=== PATIENT | male | born 1960 | race Caucasian/White ===

== ENCOUNTER → 2018-07-21 | Outpatient (CLI) | payer MEDICARE, BC ==
[~2018-07-21] MED LIST: ASPI-482 PO; ESCITALOPRAM OX20 MG PO; INSU100C SQ; LEVO200T PO; LEVO25TA55 PO; LOSA25TA5 PO; PANT40TA5 PO; SIMV40TA3 PO
--- NOTE | 2018-07-21 15:06 | KCIC ---
MRI of the lumbar spine without contrast 07/21/2018 CLINICAL HISTORY: Low back pain which radiates down the left leg. TECHNIQUE: Unenhanced T1-weighted and T2-weighted sagittal and axial and inversion recovery sagittal images of the lumbar spine were obtained. FINDINGS: Minimal S-shaped curvature of the thoracolumbar spine is seen. Degenerative signal changes are seen involving the L2-3, L4-5 and L5-S1 discs. Degenerative signal changes are seen within the marrow surrounding these discs. Loss of height of the L4-5 and L5-S1 discs is noted. The conus medullaris is normal morphology, position, and signal characteristics. The L1-2 disc space is within normal limits. At the L2-3 disc space there is a mild generalized disc bulge. Degenerative changes are seen involving the facet joints bilaterally. There is mild ligament flavum hypertrophy bilaterally. These findings when combined do not result in significant central spinal canal or neural foraminal stenosis. At the L3-4 disc space there is a mild generalized disc bulge. Degenerative changes are seen involving the facet joints bilaterally. There is mild ligamentum flavum hypertrophy bilaterally. There is prominence of the posterior epidural fat. These findings when combined with prominence of the posterior epidural fat result in mild central spinal canal stenosis. No neural foraminal stenosis is seen. At the L4-5 disc space there is a mild generalized disc bulge. Superimposed on this disc bulge is a right paracentral focal disc protrusion. This measures 3 mm in AP diameter. Degenerative changes are seen involving the facet joints bilaterally. There is mild ligament flavum hypertrophy bilaterally. There is prominence of the posterior epidural fat. These findings when combined result in mild right greater than left central spinal canal stenosis. No neural foraminal stenosis is seen. At the L5-S1 disc space there is a mild to moderate generalized disc bulge. Superimposed on this disc bulge is a central/right paracentral focal disc protrusion. This measures 4 mm in AP diameter. Degenerative changes are seen involving the facet joints bilaterally. There is mild ligamentum flavum hypertrophy. These findings when combined do not result in significant central spinal canal or neural foraminal stenosis. IMPRESSION: The changes of degenerative disc disease are seen throughout the lumbar spine. These findings result in mild central spinal canal stenosis at L3-4 and mild right greater than left central spinal canal stenosis at L4-5. No neural foraminal stenosis is seen. Electronically signed by: Clay Cannon MD (07/21/2018 3:03 PM) [facility]
== END | disposition home or self-care (01) ==
LOC: KCIC MRI 11:40
PROVIDERS: ATTEND Anesthesiology Pain Medicine
DX: M51.36 Other intervertebral disc degeneration, lumbar region (principal); M48.061 Spinal stenosis, lumbar region without neurogenic claudication; M51.26 Other intervertebral disc displacement, lumbar region
CPT/HCPCS: 72148

== ENCOUNTER → 2019-09-10 | Outpatient (CLI) | payer MEDICARE, BC ==
[~2019-09-10] MED LIST changes: -LOSA25TA5 PO; +LOSA25TA54 PO; -PANT40TA5 PO; +PANT40TA77 PO; +SIMV40TA18 PO; -SIMV40TA3 PO
--- NOTE | 2019-09-10 16:57 | RAD ---
DUPLEX LOWER EXTREMITY BILAT Indication: Delayed healing of left toe. Comparison: July 29, 2016. Procedure: Real-time grayscale, color flow Doppler, and Doppler spectral waveform analysis of the arterial system of the lower extremity is performed. Findings: Right lower extremity: Biphasic or triphasic waveforms throughout the right common femoral, deep femoral, superficial femoral, popliteal, anterior tibial and posterior tibial artery. No flow is identified within the right peroneal artery. Monophasic waveform within the dorsalis pedis artery, may indicate proximal stenosis. Increased velocity within the left common femoral artery measures 189 cm/s and anterior tibial artery measures 156 cm/s indicating 30-49% stenosis. Increased velocity in the left dorsalis pedis artery measures 250 cm/s indicating 50-75% stenosis. Monophasic waveform throughout the distal left lower extremity from the superficial femoral artery distally through the dorsalis pedis artery. Postoperative changes right femoral popliteal artery bypass graft with minimal flow seen proximally and occlusion within the mid aspect, similar compared to prior study. IMPRESSION: 1. No flow is identified within the right peroneal artery, may indicate occlusion. 2. 50-75% stenosis of the left dorsalis pedis artery. 3. 30-49% stenosis of the left common femoral and anterior tibial arteries. 4. Occlusion of the right femoral popliteal artery bypass graft, unchanged. 5. Monophasic waveforms throughout the mid to distal left lower extremity, may indicate proximal stenosis. Electronically signed by: Ross Gutiérrez DO (09/10/2019 4:54 PM) [id number]
== END | disposition home or self-care (01) ==
LOC: US 15:19
PROVIDERS: ATTEND Podiatrist Foot & Ankle Surgery
DX: I70.293 Other atherosclerosis of native arteries of extremities, bilateral legs (principal)
CPT/HCPCS: 93925

== ENCOUNTER → 2020-10-29 | Outpatient (CLI) | payer MEDICARE, BC ==
[~2020-10-29] MED LIST changes: +ALPR0.5T6 PO; +BUPR300T92 PO; +CETI10TA16 PO; +CYCL10TA2 PO; +ERGO500027 PO; +FLUT9.9S NS; +FURO40TA4 PO; +INSU100V6 SQ; +ISOS30TA68 PO; +MECL12.582 PO; +MULT-496 PO; +MUPI15CR8 TP; +OMEP40CA45 PO; +RANO500T2 PO; +SUCR1TAB35 PO; +VENTOLIN HFA18 GM INH; +ZOLP10TA PO; +ranitidine PO
== END ==
LOC: LAB 09:20
PROVIDERS: ATTEND Internal Medicine Cardiovascular Disease
DX: Z01.812 Encounter for preprocedural laboratory examination (principal); R07.9 Chest pain, unspecified; Z20.822 Contact with and (suspected) exposure to COVID-19
CPT/HCPCS: U0003

== ENCOUNTER 2020-11-03 07:18 | Outpatient (CLI) | payer MEDICARE, BC ==
[~2020-11-03] VITALS: Ht 185.4 cm; Wt 127.9 kg
[2020-11-03] VITALS (10 sets, daily range): BP systolic 130–188; BP diastolic 63–101
[~2020-11-03 07:18] MED LIST changes: -ALPR0.5T6 PO; -BUPR300T92 PO; -CETI10TA16 PO; -CYCL10TA2 PO; -ERGO500027 PO; -FLUT9.9S NS; -FURO40TA4 PO; -INSU100V6 SQ; -ISOS30TA68 PO; -MECL12.582 PO; -MULT-496 PO; -MUPI15CR8 TP; -OMEP40CA45 PO; -RANO500T2 PO; -SUCR1TAB35 PO; -VENTOLIN HFA18 GM INH; -ZOLP10TA PO; -ranitidine PO
[2020-11-03 07:48] LABS: HEMATOCRIT 41.4 % (39.0-53.0); HEMOGLOBIN 14.4 g/dL (13.0-17.5); RED BLOOD COUNT 4.77 x10^6/uL (4.30-5.70); RED CELL DISTRIBUTION WIDTH 13.7 % (11.5-14.5); WHITE BLOOD COUNT 4.8 x10^3/uL (4.0-11.0)
[2020-11-03] MEDS ORDERED: LIDOCAINE 1% PF 2 ML VIAL. ONE (07:48)
[2020-11-03] MEDS ORDERED: IODIXANOL 320 MG/ML 100 ML VIAL. ONE (07:48)
[2020-11-03] MEDS ORDERED: HEPARIN for ARTERIAL LINE 1,500 ML ONE (07:49)
[2020-11-03] MEDS ORDERED: LIDOCAINE 1% Multi-Dose 20 ML VIAL. ONE (07:51)
[2020-11-03 07:55] LABS: CALCIUM 8.9 mg/dL (8.5-10.1); CREATININE 1.2 mg/dL (0.7-1.3); GFR 61.3; POTASSIUM 4.1 mmol/L (3.5-5.1)
[2020-11-03 07:58] LABS: PROTHROMBIN TIME PATIENT 12.9 SEC (11.7-14.0)
[2020-11-03] MEDS ORDERED: LIDOCAINE 1% Multi-Dose 20 ML VIAL. INJ ONE (08:00)
[2020-11-03] MEDS ORDERED: fentaNYL PF VIAL 100 MCG/2 ML VIAL IV ONE (08:00)
[2020-11-03] MEDS ORDERED: IODIXANOL 320 MG/ML 100 ML VIAL. IART ONE (08:00)
[2020-11-03] MEDS ORDERED: HEPARIN for IV BOLUS 10,000 UNIT/10 ML VIAL. IART ONE (08:00)
[2020-11-03] MEDS ORDERED: VERAPAMIL 5 MG/2 ML VIAL. IART ONE (08:00)
[2020-11-03] MEDS ORDERED: NITROGLYCERIN 200 MCG/2 ML SYRINGE FOR CATH/VASC LAB. IART ONE (08:00)
[2020-11-03] MEDS ORDERED: MIDAZOLAM HCL/PF 2 MG/2 ML VIAL. IV ONE (08:00)
[2020-11-03] MEDS ORDERED: fentaNYL PF VIAL 100 MCG/2 ML VIAL ONE (08:06)
[2020-11-03] MEDS ORDERED: VERAPAMIL 5 MG/2 ML VIAL. ONE (08:06)
[2020-11-03] MEDS ORDERED: MIDAZOLAM HCL/PF 2 MG/2 ML VIAL. ONE (08:06)
[2020-11-03] MEDS ORDERED: HEPARIN for IV BOLUS 10,000 UNIT/10 ML VIAL. ONE (08:06)
[2020-11-03] MEDS ORDERED: NITROGLYCERIN 200 MCG/2 ML SYRINGE FOR CATH/VASC LAB. ONE ×2 (08:07→12:16)
[2020-11-03] MEDS ORDERED: FURO40TA4 PO (09:05)
[2020-11-03] MEDS ORDERED: BUPR300T92 PO (09:05)
[2020-11-03] MEDS ORDERED: FLUT9.9S NS (09:05)
[2020-11-03] MEDS ORDERED: MECL12.574 PO (09:05)
[2020-11-03] MEDS ORDERED: MUPI15CR8 TP (09:05)
[2020-11-03] MEDS ORDERED: OMEP40CA45 PO (09:05)
[2020-11-03] MEDS ORDERED: CETI10TA16 PO (09:05)
[2020-11-03] MEDS ORDERED: MULT-496 PO (09:05)
[2020-11-03] MEDS ORDERED: INSU100V6 SQ (09:05)
[2020-11-03] MEDS ORDERED: VENTOLIN HFA18 GM INH (09:05)
[2020-11-03] MEDS ORDERED: ALPR0.5T6 PO (09:05)
[2020-11-03] MEDS ORDERED: ERGO500027 PO (09:05)
[2020-11-03] MEDS ORDERED: CYCL10TA2 PO (09:05)
[2020-11-03] MEDS ORDERED: SUCR1TAB35 PO (09:05)
[2020-11-03] MEDS ORDERED: ranitidine PO (09:05)
[2020-11-03] MEDS ORDERED: ZOLP10TA PO (09:05)
[2020-11-03] MEDS ORDERED: HEPARIN for IV BOLUS 10,000 UNIT/10 ML VIAL. IV ONE (12:15)
--- NOTE | 2020-11-03 13:06 | CARD ---
MR#: [id number] Date of Study: 11/03/2020 Ordering Physician: PALOMA DONAHUE, Referring Physician: PALOMA DONAHUE, Tech: SONAL TORRES RTR APPROVED REPORT Technologist: SONAL TORRES RTR Nurse: Poornima Baker RN Procedure(s) performed: MODERATE SEDATION TIME: 50 MINUTES FLUORO TIME: 19.3 MIN DOSE: [id number] CONTRAST: 149 CC VISI LHC, Coronary angiography iFR of the LAD and LCx HISTORY The patient is a 60 year-old with a history of : diabetes mellitus with treatment, hypertension, dysl ipidemia. INDICATION The indication(s) include : unstable angina , dyspnea. [facility] Clinical Frailty Scale [facility] Clinical Frailty Scale: Mildly Frail Heart Failure Heart Failure: Yes If Yes, Newly Diagnosed: Yes If Yes, HF Type: Diastolic If Yes, NYHA Class: Class II PROCEDURE NARRATIVE Clinical information: 60-year-old man who presented to the office in the setting of exertional dyspnea and chest discomfort . Given his high pretest probability with risk factors including diabetes, hypertension and male gen christine a decision was made to proceed with cardiac catheterization. Procedure details: The right wrist was prepped and draped in usual sterile fashion. Under 2% lidocaine local anesthesia a 6 Venezuelan sheath was placed in the right radial artery via the Seldinger technique. Next, a 6 Fren ch TIG catheter was used to perform diagnostic angiography of the right and left coronary arteries. A pigtail catheter was used to obtain a left ventricular end-diastolic pressure and a pullback was pe rformed. Findings: Aorta 180/80 LVEDP 15 mmHg No pullback gradient across aortic valve Coronary angiography: Left main is a moderate caliber vessel with mild luminal irregularities and negative remodeling LAD is a small to moderate caliber vessel with moderate diffuse irregularities in the proximal to mid segment of up to 50%. D1 is a moderate caliber vessel with a distal 70% stenosis Left circumflex is a nondominant vessel with an ostial 60% stenosis. OM1 is a small caliber vessel with a proximal 50% stenosis RCA is a large caliber dominant vessel with mid 40 to 50% stenosis. RPDA is a small caliber vessel with mild diffuse irregularities of up to 30% Interventional technique: Given the intermediate stenosis involving the LAD and circumflex disease a decision was made to perfo rm an IFR. Heparin was used for anticoagulation. Intracoronary nitroglycerin was administered. Thr ough a 6 Venezuelan EBU 3.5 guide catheter a [employer] IFR wire was advanced to the LAD and also redirected into the left circumflex after appropriate normalization and this revealed a positive IFR of the LAD at 0.8 and a IFR of the left circumflex of 0.95. These values were confirmed and the guide catheter was also pulled back into the aorta to reduce any dampening and despite this the LAD IFR value was e levated. Due to diffuse disease and lack of any clear focal stenosis involving the LAD further inter vention was deferred. At case completion the right radial sheath was removed and hemostasis achieved with a Blockboardumo radial b and. No acute complications noted. The patient tolerated the procedure well. Conclusion 1. Normal left-sided filling pressures 2. Moderate diffuse three-vessel coronary artery disease with positive IFR of the LAD and negative I FR of the left circumflex. Recommendations Aggressive medical therapy with trial of antianginals including Imdur and Ranexa. If he fails medica l therapy could consider KRAUSE to the LAD versus high risk PCI but at this time would favor medical th erapy. Signed by : Paloma Donahue, Electronically Approved : 11/03/2020 13:05:48
--- NOTE | 2020-11-03 14:33 | RAD ---
MR#: [id number] Date of Study: 11/03/2020 Ordering Physician: PALOMA ELLIS, Referring Physician: PALOMA ELLIS, Tech: Erickson Cross, WINDY, RDMS, RVT, RDCS, RTR APPROVED REPORT Patient Location: OUT-PATIENT Indications PAD VELOCITY AND DOPPLER WAVEFORM ANALYSIS RIGHT cm/secWaveformSeverity LEFT cm/secWaveform Severity dCFA 129.0BiphasicdCFA 134.0Biphasic Prof Fem Art. 71.0BiphasicProf Fem Art. 93.0Biphasic Fem Art Prox. 117.0BiphasicFem Art Prox. 130.0Biphasic Fem Art Mid. 121.0BiphasicFem Art Mid. 129.0Biphasic Fem Art Dist. 126.0BiphasicFem Art Dist. 114.0Biphasic Pop Art(Fossa) 91.0BiphasicPop Art(AK) 102.0Biphasic HOSPICE SPIRITUAL CARE COORDINATOR Prox. 65.0BiphasicPTA Prox. 49.0Biphasic HOSPICE SPIRITUAL CARE COORDINATOR Dist. 76.0BiphasicPTA Dist. 94.0Triphasic JÚNIOR Prox. 70.0BiphasicATA Prox. 92.0Biphasic DPA 119BiphasicDPA 107Triphasic BYPASS GRAFT ANALYSIS RIGHT cm/secWaveform SeverityLEFT cm/secWaveformSeverity Prox. Anastomosis Prox. Anastomosis Findings Luz scale images of the bilateral lower extremity arterial vessels demonstrate mild to moderate diff use atherosclerosis. Spectral waveforms and color Doppler are grossly within normal limits. There is two-vessel runoff be low the knee. Otherwise no critical stenosis identified. Critical Notification Critical Value: No <Conclusion> 1. No significant lower extremity arterial disease bilaterally Signed by : Paloma Ellis, Electronically Approved : 11/03/2020 14:33:08
[2020-11-03] MEDS ORDERED: ISOS30TA68 PO (14:43)
[2020-11-03] MEDS ORDERED: RANO500T2 PO (14:43)
--- NOTE | 2020-11-03 15:10 | NUR ---
TR band dc'd. Arm board reapplied. PIV remains intact for echocardiogram. Pt ambulated and tolerated PO. Pt transferred to cardiac center for echo
--- NOTE | 2020-11-04 08:41 | CARD ---
MR#: [id number] Date of Study: 11/03/2020 Ordering Physician: PALOMA ELLIS, Referring Physician: PALOMA ELLIS, Tech: Liliana Mclean, [facility] APPROVED REPORT EXAM: Two-dimensional and M-mode echocardiogram with Doppler and color Doppler. Other Information Quality : AverageHR: 62bpm INDICATION Dyspnea RISK FACTORS Hypertension Hyperlipidemia Diabetes Asthma 2D DIMENSIONS RVDd3.6 (2.9-3.5cm)Left Atrium(2D)3.4 (1.6-4.0cm) IVSd1.1 (0.7-1.1cm)Aortic Root(2D)3.4 (2.0-3.7cm) LVDd5.1 (3.9-5.9cm)LVOT Diameter2.2 (1.8-2.4cm) PWd1.0 (0.7-1.1cm)LVDs3.4 (2.5-4.0cm) FS (%) 33.2 %SV77.0 ml LVEF(%)61.4 (>50%) Aortic Valve AoV Peak Perry.132.0cm/sAoV VTI26.5cm AO Peak GR.7.0mmHgLVOT Peak Perry.107.3cm/s LVOT VTI 24.56cmAO Mean GR.3mmHg DANIEL (VMAX)2.67yv1LSO (VTI)3.37cm2 Mitral Valve MV E Kedwvvum49.1cm/sMV DECEL QCUM260if MV A Lnhmrqyn367.9cm/sMV PUI41ql E/A Ratio0.8MVA (PHT)3.10cm2 TDI E/Lateral E'10.1E/Medial E'12.7 Pulmonary Valve PV Peak Aazlljtm52.6cm/sPV Peak Grad.4mmHg Pulmonary Vein S1 Viemkecv38.1cm/sD2 Kgqfxncy55.8cm/s PVa llczuxbv125vhac LEFT VENTRICLE The left ventricle is normal size. There is normal left ventricular wall thickness. The left ventricu lar systolic function is normal. The Ejection Fraction is 55-60%. There is normal LV segmental wall m otion. Transmitral Doppler flow pattern is Grade I-abnormal relaxation pattern. RIGHT VENTRICLE The right ventricle is normal size. There is normal right ventricular wall thickness. The right ventr icular systolic function is normal. ATRIA The left atrium size is normal. The right atrium size is normal. The interatrial septum is intact wit h no evidence for an atrial septal defect or patent foramen ovale as noted on 2-D or Doppler imaging. AORTIC VALVE The aortic valve is normal in structure and function. Doppler and Color Flow revealed no significant aortic regurgitation. Calculated aortic valve area is 3.03 cm2 with maximum pressure gradient of 9 mm Hg and mean pressure gradient of 4 mmHg. MITRAL VALVE The mitral valve is normal in structure and function. There is no evidence of mitral valve prolapse. There is no mitral valve stenosis. Doppler and Color Flow revealed no mitral valve regurgitation note d. TRICUSPID VALVE The tricuspid valve is normal in structure and function. Doppler and Color Flow revealed no tricuspid valve regurgitation noted. There is no tricuspid valve stenosis. PULMONIC VALVE The pulmonic valve is not well visualized. Doppler and Color Flow revealed trace pulmonic valvular re gurgitation. GREAT VESSELS The aortic root is normal in size. The IVC is normal in size and collapses >50% with inspiration. PERICARDIAL EFFUSION There is no evidence of significant pericardial effusion. Critical Notification Critical Value: No <Conclusion> The left ventricular systolic function is normal. The Ejection Fraction is 55-60%. There is normal LV segmental wall motion. Transmitral Doppler flow pattern is Grade I-abnormal relaxation pattern. There is no evidence of significant pericardial effusion. Signed by : Sridhar Bansal, Electronically Approved : 11/04/2020 08:40:59
== END 2020-11-03 15:34 | disposition home or self-care (01) ==
LOC: CCL 07:18
PROVIDERS: ATTEND Internal Medicine Cardiovascular Disease
DX: I25.110 Atherosclerotic heart disease of native coronary artery with unstable angina pectoris (principal); I73.9 Peripheral vascular disease, unspecified; I10 Essential (primary) hypertension; E11.9 Type 2 diabetes mellitus without complications; E78.5 Hyperlipidemia, unspecified; J45.909 Unspecified asthma, uncomplicated; K21.9 Gastro-esophageal reflux disease without esophagitis; M19.90 Unspecified osteoarthritis, unspecified site; E03.9 Hypothyroidism, unspecified; Z90.49 Acquired absence of other specified parts of digestive tract; Z98.890 Other specified postprocedural states; Z79.899 Other long term (current) drug therapy; Z79.82 Long term (current) use of aspirin; Z79.4 Long term (current) use of insulin; Z87.891 Personal history of nicotine dependence; Z88.8 Allergy status to other drugs, medicaments and biological substances
CPT/HCPCS: 36415; 80048; 85027; 85610; 93306; 93458; 93571; 93572; 93925; 99152; 99153; C1769; C1892; J1644; J2250; J3010; J3490; Q9967

== ENCOUNTER 2022-02-01 08:33 | Outpatient (CLI) | payer MEDICARE, BC ==
[~2022-02-01] VITALS: Ht 185.4 cm; Wt 121.8 kg
[2022-02-01] VITALS (12 sets, daily range): BP systolic 124–176; BP diastolic 56–88
[~2022-02-01 08:33] MED LIST changes: +ALPR0.5T6 PO; +BUPR300T92 PO; +CETI10TA16 PO; +CYCL10TA19 PO; +ERGO500089 PO; +FLUT9.9S NS; +FURO40TA4 PO; +HEPARIN for ARTERIAL LINE 1,500 ML ONE; +INSU100V6 SQ; +IODIXANOL 320 MG/ML 100 ML VIAL. ONE; +ISOS30TA68 PO; +LIDOCAINE 1% PF 2 ML VIAL. ONE; +MECL12.582 PO; +MULT-496 PO; +MUPI15CR8 TP; +OMEP40CA7 PO; +RANO500T2 PO; +SUCR1TAB35 PO; +VENTOLIN HFA18 GM INH; +ZOLP10TA PO; +ranitidine PO
[2022-02-01 09:36] LABS: CALCIUM 8.7 mg/dL (8.5-10.1); CREATININE 1.3 mg/dL (0.7-1.3); GFR 55.8
[2022-02-01] MEDS ORDERED: CRESTOR40 MG PO (09:40)
[2022-02-01] MEDS ORDERED: [UNRECOGNIZED DRUG - OTHER] (09:40)
[2022-02-01] MEDS ORDERED: LEVO150C PO (09:40)
[2022-02-01] MEDS ORDERED: CIME200T6 PO (09:40)
[2022-02-01] MEDS ORDERED: MELA10CA PO (09:40)
[2022-02-01] MEDS ORDERED: MIDAZOLAM HCL/PF 2 MG/2 ML VIAL. ONE (09:50)
[2022-02-01] MEDS ORDERED: VERAPAMIL 5 MG/2 ML VIAL. ONE (09:50)
[2022-02-01] MEDS ORDERED: fentaNYL PF VIAL 100 MCG/2 ML VIAL ONE (09:50)
[2022-02-01] MEDS ORDERED: HEPARIN for IV BOLUS 10,000 UNIT/10 ML VIAL. ONE (09:50)
[2022-02-01] MEDS ORDERED: NITROGLYCERIN 200 MCG/2 ML SYRINGE FOR CATH/VASC LAB. ONE (09:50)
[2022-02-01 09:57] LABS: HEMATOCRIT 37.3 % (39.0-53.0); HEMOGLOBIN 13.4 g/dL (13.0-17.5); RED BLOOD COUNT 4.28 x10^6/uL (4.30-5.70); RED CELL DISTRIBUTION WIDTH 13.2 % (11.5-14.5); WHITE BLOOD COUNT 4.4 x10^3/uL (4.0-11.0)
[2022-02-01 09:59] LABS: PROTHROMBIN TIME PATIENT 13.4 SEC (11.7-14.0)
[2022-02-01] MEDS ORDERED: TIROFIBAN 12.5MG -0.9% NS 0 ML IV ONE (10:18)
[2022-02-01] MEDS ORDERED: MIDAZOLAM HCL/PF 2 MG/2 ML VIAL. IV ONE (10:45)
[2022-02-01] MEDS ORDERED: NITROGLYCERIN 200 MCG/2 ML SYRINGE FOR CATH/VASC LAB. IART ONE (10:45)
[2022-02-01] MEDS ORDERED: HEPARIN for IV BOLUS 10,000 UNIT/10 ML VIAL. IART ONE (10:45)
[2022-02-01] MEDS ORDERED: LIDOCAINE 1% PF 2 ML VIAL. INJ ONE (10:45)
[2022-02-01] MEDS ORDERED: fentaNYL PF VIAL 100 MCG/2 ML VIAL IV ONE (10:45)
[2022-02-01] MEDS ORDERED: IODIXANOL 320 MG/ML 100 ML VIAL. IART ONE (10:45)
[2022-02-01] MEDS ORDERED: VERAPAMIL 5 MG/2 ML VIAL. IART ONE (10:45)
--- NOTE | 2022-02-01 12:42 | CARD ---
MR#: [id number] Date of Study: 02/01/2022 Ordering Physician: PALOMA DONAHUE, Referring Physician: PALOMA DONAHUE, Tech: RT Malcom(R) APPROVED REPORT Technologist: Danyelle Stewart RT(R) Nurse: Kevin Armstrong RN Procedure(s) performed: Fluoro time: 6.8 min dose: 72 gycm2 contrast: 44cc visi moderate sedation: 36MIN LHC, Coronary angiography HISTORY The patient is a 61 year-old male with a history of : diabetes mellitus with treatment, hypertension. INDICATION The indication(s) include : unstable angina , dyspnea. [facility] Clinical Frailty Scale [facility] Clinical Frailty Scale: Moderately Frail Heart Failure Heart Failure: No CASE TECHNIQUE IV conscious sedation was used throughout procedure with appropriate monitoring and was performed in the presence of a registered nurse who was an independent trained observer other than the physician p erforming the procedure. During this case, Fluoroscopy and low osmolar contrast were used for imaging . Specimen(s) Removed: N/A Estimated Blood loss: 15 cc's. PROCEDURE NARRATIVE After appropriate informed consent the right wrist was prepped and draped in usual sterile fashion. Under 1% lidocaine local anesthesia a 6 [place] sheath was placed in the right radial artery. Next, d iagnostic angiography was performed with a 6 [place] TIG catheter and a JL 3.5 catheter and a JR4 cath eter. Left ventricular end-diastolic pressure was obtained with a JR4 catheter and a pullback was pe rformed. At case completion catheters and sheaths were removed and hemostasis was achieved via a Ter umo radial band. No acute complications Findings: LVEDP 15 mmHg No LV to aortic pullback gradient Coronary angiography: Left main has normal angiographic appearance LAD is a moderate caliber vessel with proximal 50 to 70% long diffuse stenosis which was previously n oted to be positive on IFR Left circumflex is a moderate to large caliber vessel with an ostial 95% stenosis RCA is a moderate to large caliber dominant vessel with moderate diffuse disease of up to 40 to 50%. Conclusion 1. Normal left-sided filling pressures 2. Two-vessel coronary artery disease with ostial circumflex involvement Recommendations 1. Consideration of coronary bypass surgery given the patient is diabetic and if he is deemed to be a suboptimal candidate we will plan for high risk PCI of the ostial left circumflex Signed by : Paloma Donahue, Electronically Approved : 02/01/2022 12:41:21
--- NOTE | 2022-02-01 14:00 | NUR ---
Discharge Note: [facility] Discharge instructions and discharge home medications reviewed with Patient and a copy given. All questions have been answered and understanding verbalized. The following instructions and handouts were given: radial site care,adult moderate sedation, and CABG education. Dr. Blackwell came to bedside and spoke with patient and his about surgery and testing needed prior to surgery. Discontinued lines and drains: Peripheral IV intact. Patient discharged to Home or Self Care withSpousevia Wheelchair
--- NOTE | 2022-02-01 14:06 | PDOC2 ---
CONSULT Date of Consult Date of Consult DATE: 02/01/22 TIME: 13:48 Reason for Consult Reason for Consult: coronary artery disease Referring Physician Referring Physician: Inocencio Donahue Source Source: Chart review, Patient History of Present Illness Reason for Visit: The patient is a 61-year-old who complains of lightheadedness and dizziness as well as dyspnea on exertion. The patient denies having had a heart attack in the past. He has been evaluated with cardiac catheterization, however. Today, the patient had coronary angiogram that reveals three-vessel coronary disease. There is high-grade ostial circumflex stenosis as well as some stenosis and distal marginals and mid LAD stenosis. I also believe there is proximal posterior descending stenosis of lesser magnitude. The patient did not have a ventriculogram, but he states that there is a echocardiogram from [facility]. The patient claims to be type I diabetic for the last 50 years. He is disabled with a Charcot left ankle. Patient also has had right femoral popliteal bypass in the past. Past Medical History Past Medical History Diabetes mellitus (as mentioned) type I x50 years Hypertension Hypothyroidism Obstructive sleep apnea (uses CPAP at home) Family History Family History Mother is alive with hypertension and diabetes Father is with hypertension and coronary artery disease Social History Social History Patient is . He denies tobacco use. Current Medications Current Medications Current Medications Iodixanol (Visipaque 320) 100 ml STK-MED ONCE .ROUTE ; Start 02/01/22 at 07:54; Stop 02/01/22 at 07:55; Status DC Lidocaine HCl (Xylocaine-Mpf 1% 2ml Vial) 2 ml STK-MED ONCE .ROUTE ; Start 02/01/22 at 07:55; Stop 02/01/22 at 07:55; Status DC Heparin Sodium/ Sodium Chloride 1,500 ml @ As Directed STK-MED ONCE .ROUTE ; Start 02/01/22 at 07:55; Stop 02/01/22 at 07:55; Status DC Fentanyl Citrate (Fentanyl 2ml Vial) 100 mcg STK-MED ONCE .ROUTE ; Start 02/01/22 at 09:50; Stop 02/01/22 at 09:50; Status DC Midazolam HCl (Versed) 2 mg STK-MED ONCE .ROUTE ; Start 02/01/22 at 09:50; Stop 02/01/22 at 09:50; Status DC Heparin Sodium (Porcine) (Heparin Sodium) 10,000 unit STK-MED ONCE .ROUTE ; Start 02/01/22 at 09:50; Stop 02/01/22 at 09:50; Status DC Verapamil HCl (Verapamil) 5 mg STK-MED ONCE .ROUTE ; Start 02/01/22 at 09:50; Stop 02/01/22 at 09:50; Status DC Nitroglycerin (Nitroglycerin) 200 mcg STK-MED ONCE .ROUTE ; Start 02/01/22 at 09:50; Stop 02/01/22 at 09:50; Status DC Tirofiban/Sodium Chloride 0 ml @ As Directed STK-MED ONCE IV ; Start 02/01/22 at 10:18; Stop 02/01/22 at 10:19; Status DC Nitroglycerin (Nitroglycerin) 200 mcg 1X ONCE IART Last administered on 02/01/22at 10:07; Start 02/01/22 at 10:45; Stop 02/01/22 at 10:46; Status DC Verapamil HCl (Verapamil) 2.5 mg 1X ONCE IART Last administered on 02/01/22at 10:07; Start 02/01/22 at 10:45; Stop 02/01/22 at 10:46; Status DC Heparin Sodium (Porcine) (Heparin Sodium) 2,500 unit 1X ONCE IART Last administered on 02/01/22at 10:07; Start 02/01/22 at 10:45; Stop 02/01/22 at 10:46; Status DC Heparin Sodium/ Sodium Chloride (HEPARIN for ARTERIAL LINE FLUSH) 1,000 unit 1X ONCE IART Last administered on 02/01/22at 10:36; Start 02/01/22 at 10:45; Stop 02/01/22 at 10:46; Status DC Midazolam HCl (Versed) 2 mg 1X ONCE IV Last administered on 02/01/22at 10:04; Start 02/01/22 at 10:45; Stop 02/01/22 at 10:46; Status DC Fentanyl Citrate (Fentanyl 2ml Vial) 50 mcg 1X ONCE IV Last administered on 02/01/22at 10:04; Start 02/01/22 at 10:45; Stop 02/01/22 at 10:46; Status DC Iodixanol (Visipaque 320) 44 ml 1X ONCE IART Last administered on 02/01/22at 10:37; Start 02/01/22 at 10:45; Stop 02/01/22 at 10:46; Status DC Lidocaine HCl (Xylocaine-Mpf 1% 2ml Vial) 2 ml 1X ONCE INJ Last administered on 02/01/22at 10:37; Start 02/01/22 at 10:45; Stop 02/01/22 at 10:46; Status DC Active Scripts Active Reported Melatonin 10 Mg Capsule 1 Cap PO QHS 30 Days Tirosint (Levothyroxine Sodium) 150 Mcg Capsule 200 Mcg PO DAILY Crestor (Rosuvastatin Calcium) 40 Mg Tablet 20 Mg PO HS Cimetidine 200 Mg Tablet 200 Mg PO DAILY [humal] Ranexa (Ranolazine) 500 Mg Tab.er.12h 1 Tab PO BID 30 Days Furosemide 40 Mg Tablet 40 Mg PO DAILY Vitamin D2 (Ergocalciferol (Vitamin D2)) 1,250 Mcg Capsule 1,250 Mcg PO DAILY Daily Value (Multivitamin) 1 Each Tablet 1 Each PO DAILY Aspir 81 (Aspirin) 81 Mg Tablet.dr 81 Mg PO DAILY Losartan Potassium (Losartan Potassium) 25 Mg Tablet 25 Mg PO DAILY Escitalopram Oxalate 20 Mg Tablet 20 Mg PO DAILY Allergies Allergies: Coded Allergies: famotidine (Unverified Allergy, Severe, DYSPNEA, 08/23/16) metoclopramide (Unverified Allergy, Severe, DYSPNEA, 08/23/16) isosorbide (Verified Allergy, Intermediate, 02/01/22) severe headache levomilnacipran (Verified Allergy, Intermediate, heavy in chest/hot, 02/01/22) niacin (Unverified Allergy, Intermediate, 08/23/16) Physical Exam General: Alert, Oriented X3, Cooperative, No acute distress HEENT: Atraumatic, PERRLA, EOMI Lungs: Clear to auscultation Heart: Regular rate, Normal S1, Normal S2, No murmurs Abdomen: Soft, No tenderness, No masses (2+ dorsalis pedis pulses bilaterally) Extremities: No clubbing, No cyanosis, No edema Skin: No rashes, No breakdown Psych/Mental Status: Mental status NL, Mood NL MUSCULOSKELETAL: Other (Charcot joints both ankles: L > R) Vitals VITALS Vital Signs Date Time Temp Pulse Resp B/P (MAP) Pulse Ox O2 Delivery O2 Flow Rate FiO2 02/01/22 12:44 51 14 93 Room Air 02/01/22 10:04 2.0 02/01/22 09:45 98.0 130/66 (87) 98.0 Labs Labs Laboratory Tests Test 02/01/22 09:20 White Blood Count 4.4 x10^3/uL (4.0-11.0) Red Blood Count 4.28 x10^6/uL (4.30-5.70) Hemoglobin 13.4 g/dL (13.0-17.5) Hematocrit 37.3 % (39.0-53.0) Mean Corpuscular Volume 87 fL (79-100) Mean Corpuscular Hemoglobin 31 pg (25-35) Mean Corpuscular Hemoglobin Concent 36 g/dL (31-37) Red Cell Distribution Width 13.2 % (11.5-14.5) Platelet Count 154 x10^3/uL (140-400) Prothrombin Time 13.4 SEC (11.7-14.0) Prothromb Time International Ratio 1.1 (0.8-1.1) Sodium Level 137 mmol/L (136-145) Potassium Level 5.0 mmol/L (3.5-5.1) Chloride Level 102 mmol/L (98-107) Carbon Dioxide Level 31 mmol/L (21-32) Anion Gap 4 (6-14) Blood Urea Nitrogen 26 mg/dL (8-26) Creatinine 1.3 mg/dL (0.7-1.3) Estimated GFR (Cockcroft-Gault) 55.8 Glucose Level 304 mg/dL (70-99) Calcium Level 8.7 mg/dL (8.5-10.1) Laboratory Tests Test 02/01/22 09:20 White Blood Count 4.4 x10^3/uL (4.0-11.0) Red Blood Count 4.28 x10^6/uL (4.30-5.70) Hemoglobin 13.4 g/dL (13.0-17.5) Hematocrit 37.3 % (39.0-53.0) Mean Corpuscular Volume 87 fL (79-100) Mean Corpuscular Hemoglobin 31 pg (25-35) Mean Corpuscular Hemoglobin Concent 36 g/dL (31-37) Red Cell Distribution Width 13.2 % (11.5-14.5) Platelet Count 154 x10^3/uL (140-400) Prothrombin Time 13.4 SEC (11.7-14.0) Prothromb Time International Ratio 1.1 (0.8-1.1) Sodium Level 137 mmol/L (136-145) Potassium Level 5.0 mmol/L (3.5-5.1) Chloride Level 102 mmol/L (98-107) Carbon Dioxide Level 31 mmol/L (21-32) Anion Gap 4 (6-14) Blood Urea Nitrogen 26 mg/dL (8-26) Creatinine 1.3 mg/dL (0.7-1.3) Estimated GFR (Cockcroft-Gault) 55.8 Glucose Level 304 mg/dL (70-99) Calcium Level 8.7 mg/dL (8.5-10.1) Assessment/Plan Assessment/Plan I discussed the findings of the coronary angiogram with the patient and his and reviewed them in the context of his presentation. I have recommended that the patient have coronary artery bypass for multivessel disease in the setting of diabetes mellitus. Both the degree and the distribution of the lesions argue for surgery. Risks and details, options and alternatives, were discussed. Risks include, but are not limited to, bleeding, infection, anesthesia risks, heart and lung problems, stroke, and . The patient understands all of this and he wishes to proceed. We will order and/or obtain the studies we require prior to surgery and try to arrange a date for elective coronary artery bypass. It is a privilege to participate in this nice fellow's care. Thank you for the consult. TEMI DALTON MD February 01, 2022 14:06
== END 2022-02-01 14:10 | disposition home or self-care (01) ==
LOC: CCL 08:33
PROVIDERS: ATTEND Internal Medicine Cardiovascular Disease
DX: I25.110 Atherosclerotic heart disease of native coronary artery with unstable angina pectoris (principal); I10 Essential (primary) hypertension; E11.9 Type 2 diabetes mellitus without complications; I25.10 Atherosclerotic heart disease of native coronary artery without angina pectoris; J45.909 Unspecified asthma, uncomplicated; K21.9 Gastro-esophageal reflux disease without esophagitis; M19.90 Unspecified osteoarthritis, unspecified site; Z90.49 Acquired absence of other specified parts of digestive tract; Z98.890 Other specified postprocedural states; Z87.891 Personal history of nicotine dependence; Z79.82 Long term (current) use of aspirin; Z79.899 Other long term (current) drug therapy; Z88.8 Allergy status to other drugs, medicaments and biological substances
CPT/HCPCS: 36415; 80048; 85027; 85610; 93458; 99152; 99153; C1769; C1894; J1644; J2250; J3010; J3490; Q9967